=== PATIENT | male | born 1950 | race Caucasian/White ===

== ENCOUNTER 2020-03-07 18:04 | Observation (INO) | payer MEDICARE, OTHER ==
--- NOTE | 2020-03-07 18:18 | PCM.SN.2 ---
- Free Text/Narrative Note: EKG done at 1811 hrs. sinus rhythm heart rate 96 PA 147 axis -71. QT 444 left anterior fascicular block. No prior For comparison impression no obvious injury
[2020-03-07] MEDS ORDERED: Ondansetron 4 MG/2 ML SDV IVPUSH ONE (18:25)
[2020-03-07] MEDS ORDERED: Sodium Chloride 0.9% 1,000 ML IV ONE (18:25)
[2020-03-07] MEDS ORDERED: Dexamethasone 10 MG/ML SDV IVPUSH ONE (18:25)
[2020-03-07 18:47] LABS: BLOOD UREA NITROGEN,BUN 13 mg/dL (7.0-18.0); CARBON DIOXIDE,CO2 26.7 mmol/L (21.0-32.0); CHLORIDE,CL 98 mmol/L (98-107); GLUCOSE RANDOM 128 mg/dL (74-106); POTASSIUM,K 3.7 mmol/L (3.5-5.1); SODIUM,NA 138 mmol/L (136-148)
--- NOTE | 2020-03-07 18:51 | CR ---
INDICATION: SOB w/ covid TECHNIQUE: Chest 1 view. COMPARISON: None. FINDINGS: Cardiovascular and mediastinum: Heart size and vasculature are normal in caliber and appearance. Mediastinum is within normal limits. Lungs and pleural space: Lungs are clear. No sign of infiltrate or mass. No sign of pleural effusion. No pneumothorax. Bones and soft tissues: No significant findings. IMPRESSION: Unremarkable chest. Dictated by: Edward Johnson MD @ 03/07/2020 18:50:01 (Electronically Signed)
[2020-03-07] MEDS ORDERED: Iopamidol 755 MG/ML 500 ML Multipack Bottle IVPUSH STA (19:36)
--- NOTE | 2020-03-07 20:04 | CT ---
INDICATION: Chest pain. COVID-19 positive. TECHNIQUE: CT chest PE was acquired with 100 cc Isovue 370 intravenous contrast. COMPARISON: None. FINDINGS: Heart and vasculature: Contrast opacification of the pulmonary arterial tree is adequate. No sign of pulmonary embolism. Thoracic aorta is normal in caliber with mild atherosclerotic calcification. No pericardial effusion. Lungs and pleural: Trace right pleural effusion. Extensive bilateral ground-glass opacities, predominantly peripheral. Lymph nodes/mediastinum: Enlargement right lobe of the thyroid with areas of punctate calcification and 2.7 centimeter hypodense nodule. Pretracheal adenopathy measures up to 17 millimeters in short axis. Right hilar adenopathy measures up to 18 millimeters. Chest wall: No masses. Upper abdomen: Minimal hiatal hernia. Segment 4 hepatic cyst measuring 7 millimeters. Likely right renal cyst measures 17 millimeters, partially included on the examination. Exophytic subcentimeter hypodense lesion upper pole left kidney, too small for characterization. Bones: Ankylosis thoracic spine. IMPRESSION: 1. No evidence of acute pulmonary embolism. 2. Extensive bilateral ground-glass opacities consistent with a viral pneumonia, presumed COVID-19 pneumonia. 3. Mediastinal and right hilar adenopathy, likely reactive to the pulmonary process. 4. Right lobe thyroid nodule. Follow-up outpatient thyroid ultrasound suggested for further characterization. Please note that all CT scans at this facility use dose modulation, iterative reconstruction, and/or weight-based dosing when appropriate to reduce radiation dose to as low as reasonably achievable. Dictated by Micah Kelly MD @ Mar 07 2020 7:55PM Signed by Dr. Micah Kelly @ Mar 07 2020 8:02PM
--- NOTE | 2020-03-07 21:30 | EDM.PDOC ---
ED HPI GENERAL MEDICAL PROBLEM - General Chief Complaint: Chest Pain Stated Complaint: SHORT OF BREATH Time Seen by Provider: 03/07/20 18:13 Source of Information: Reports: Patient History Limitations: Reports: No Limitations - History of Present Illness INITIAL COMMENTS - FREE TEXT/NARRATIVE: HISTORY AND PHYSICAL: History of present illness: Patient is a 69-year-old male who presents emergency room today with concern of shortness of breath and COVID-19 infection. Patient states he was diagnosed with COVID-19 on February 24 and since then he has been quarantining at home. Patient states that over the past 1 to 2 days he has progressive worsening shortness of breath. Patient states that he has not been able to eat because every time he goes to swallow, he has a sudden increase in shortness of breath and has spit out his food every time he tried to eat. Patient states that he has not been seen since he has been diagnosed with Covid and he was tested at the respiratory clinic at [facility]. Patient he has a history of hypertension but denies any other health history. Patient is he is also felt nauseous, coughing, but has not vomited and has had increased weakness and generalized fatigue. Patient denies fever, chills, chest pain. Denies headache, neck stiff ness, change in vision, syncope, or near syncope. Denies vomiting, abdominal pain, diarrhea, constipation, or dysuria. Has not noted any blood in urine or stool. Review of systems: As per history of present illness and below otherwise all systems reviewed and negative. Past medical history: As per history of present illness and as reviewed below otherwise noncontributory. Surgical history: As per history of present illness and as reviewed below otherwise noncontributory. Social history: See social history for further information Family history: As per history of present illness and as reviewed below otherwise noncontributory. Physical exam: General: Patient is alert, oriented, and in no acute distress. Patient sitting comfortably on exam table; tired appearing. Patient 86-89% on RA. Otherwise vitals stable and reviewed by me. HEENT: Atraumatic, normocephalic, pupils equal and reactive bilaterally, negative for conjunctival pallor or scleral icterus, mucous membranes moist, TMs normal bilaterally, throat clear, neck supple, nontender, trachea midline. No drooling or trismus noted. No meningeal signs. No hot potato voice noted. Lungs: Patient speaking clearly without breathlessness, no wheezing or stridor, no accessory muscle use or respiratory distress. Auscultation deferred due to current COV-ID 19 outbreak. Heart: Auscultation deferred due to current COV-ID 19 outbreak. Abdomen: Soft, nondistended, nontender. Negative for masses or hepatosplenomegaly. Negative for costovertebral tenderness. Pelvis: Stable nontender. Genitourinary: Deferred. Rectal: Deferred. Skin: Intact, warm, dry. No lesions or rashes noted. Extremities: Atraumatic, negative for cords or calf pain. Neurovascular unremarkable. Neuro: Awake, alert, oriented. Cranial nerves II through XII unremarkable. Cerebellum unremarkable. Motor and sensory unremarkable throughout. Exam nonfocal. Notes: Patient placed on 2L NC and 94% upon arrival to the ED. Upon reevaluation of patient, he remains comfortable and vitally stable. Dr. Regan consulted on patient and will admit to observation telemetry. Voices understanding and is agreeable to plan of care. Denies any further questions or concerns at this time. Diagnostics: EKG, CBC, CMP, UA, chest x-ray, troponin, D-dimer, and CT Therapeutics: Saline, Decadron, Zofran Impression: Hypoxia COVID-19 infection Plan: Admit to observation to Dr. Regan on telemetry Definitive disposition and diagnosis as appropriate pending reevaluation and review of above. back Pain Score (Numeric/FACES): 7 - Related Data Allergies Allergy/AdvReac Type Severity Reaction Status Date / Time No Known Allergies Allergy Verified 03/07/20 22:34 Home Meds: Home Meds Losartan/Hydrochlorothiazide [Losartan-HCTZ 100-25 MG] 1 tab PO BID 03/07/20 [History] Past Medical History Cardiovascular History: Reports: Hypertension - Past Surgical History Cardiovascular Surgical History: Reports: None Social & Family History - Family History Family Medical History: No Pertinent Family History - Tobacco Use Tobacco Use Status *Q: Former Tobacco User Used Tobacco, but Quit: Yes Month/Year Tobacco Last Used: "40years ago" - Caffeine Use Caffeine Use: Reports: None - Recreational Drug Use Recreational Drug Use: No ED ROS GENERAL - Review of Systems Review Of Systems: Comprehensive ROS is negative, except as noted in HPI. ED EXAM, GENERAL - Physical Exam Exam: See Below (see dictation) Course - Vital Signs Last Recorded V/S: Last Vital Signs Temp 97.0 F 03/08/20 13:00 Pulse 73 03/08/20 13:00 Resp 18 03/08/20 13:00 BP 125/73 03/08/20 13:00 Pulse Ox 95 03/08/20 13:00 - Orders/Labs/Meds Orders: Medication Orders Albuterol/Ipratropium (Combivent Respimat) 0 gm INH Q6H PRN PRN Reason: Dyspnea Dexamethasone (Dexamethasone) 6 mg PO Q24H MONICO Enoxaparin Sodium (Lovenox) 40 mg SUBCUT Q24H [facility] Last Admin: 03/08/20 01:41 Dose: 40 mg Documented by: CELIA Guaifenesin/Dextromethorphan (Robitussin Dm) 10 ml PO Q4H PRN PRN Reason: Cough HCTZ/Losartan Potassium (Hyzaar 50-12.5 Mg) 2 tab PO BID [facility] Last Admin: 03/08/20 08:55 Dose: 2 tab Documented by: KENZIEIGLUC Remdesivir 100 mg/ Sodium (Chloride) 100 mls @ 100 mls/hr IV Q24H [facility] Stop: 03/11/20 21:59 Ondansetron HCl (Zofran) 4 mg IVPUSH Q4H PRN PRN Reason: Nausea/Vomiting Labs: Laboratory Tests 03/07/20 03/07/20 03/07/20 Range/Units 18:15 18:15 18:15 WBC 7.30 (4.0-11.0) K/uL RBC 4.83 (4.50-5.90) M/uL Hgb 14.3 (13.0-17.0) g/dL Hct 42.4 (38.0-50.0) % MCV 87.8 (80.0-98.0) fL MCH 29.6 (27.0-32.0) pg MCHC 33.7 (31.0-37.0) g/dL RDW Std Deviation 42.9 (28.0-62.0) fl RDW Coeff of Darinel 13 (11.0-15.0) % Plt Count 172 (150-400) K/uL MPV 10.20 (7.40-12.00) fL Neut % (Auto) 66.5 (48.0-80.0) % Lymph % (Auto) 26.6 (16.0-40.0) % [place] % (Auto) 6.7 (0.0-15.0) % Eos % (Auto) 0.1 (0.0-7.0) % Baso % (Auto) 0.1 (0.0-1.5) % Neut # (Auto) 4.9 (1.4-5.7) K/uL Lymph # (Auto) 1.9 (0.6-2.4) K/uL [place] # (Auto) 0.5 (0.0-0.8) K/uL Eos # (Auto) 0.0 (0.0-0.7) K/uL Baso # (Auto) 0.0 (0.0-0.1) K/uL Nucleated RBC % 0.0 /100WBC Nucleated RBCs # 0 K/uL D-Dimer, Quantitative 0.62 H (0.0-0.50) mg/L FEU Sodium 138 (136-148) mmol/L Potassium 3.7 (3.5-5.1) mmol/L Chloride 98 (98-107) mmol/L Carbon Dioxide 26.7 (21.0-32.0) mmol/L BUN 13 (7.0-18.0) mg/dL Creatinine 0.9 (0.8-1.3) mg/dL Est Cr Clr Drug Dosing TNP Estimated GFR (MDRD) > 60.0 ml/min Glucose 128 H (74-106) mg/dL Calcium 9.1 (8.5-10.1) mg/dL Total Bilirubin 0.6 (0.2-1.0) mg/dL AST 30 (15-37) IU/L ALT 37 (14-63) IU/L Alkaline Phosphatase 69 (46-116) U/L Troponin I < 0.050 (0.000-0.056) ng/mL Total Protein 7.8 (6.4-8.2) g/dL Albumin 3.5 (3.4-5.0) g/dL Globulin 4.3 H (2.6-4.0) g/dL Albumin/Globulin Ratio 0.8 L (0.9-1.6) Meds: Medications Generic Name Dose Route Start Last Admin Trade Name Freq PRN Reason Stop Dose Admin Albuterol/Ipratropium 0 gm 03/07/20 23:01 Combivent Respimat INH Q6H PRN Dyspnea Dexamethasone 6 mg 03/08/20 18:00 Dexamethasone PO Q24H MONICO Enoxaparin Sodium 40 mg 03/08/20 01:15 03/08/20 01:41 Lovenox SUBCUT 40 mg Q24H MONICO Administration Guaifenesin/Dextromethorphan 10 ml 03/08/20 09:04 Robitussin Dm PO Q4H PRN Cough HCTZ/Losartan Potassium 2 tab 03/08/20 09:00 03/08/20 08:55 Hyzaar 50-12.5 Mg PO 2 tab BID MONICO Administration Remdesivir 100 mg/ Sodium 100 mls @ 100 mls/hr 03/08/20 21:00 Chloride IV 03/11/20 21:59 Q24H MONICO Ondansetron HCl 4 mg 03/07/20 23:02 Zofran IVPUSH Q4H PRN Nausea/Vomiting Discontinued Medications Generic Name Dose Route Start Last Admin Trade Name Freq PRN Reason Stop Dose Admin Dexamethasone 6 mg 03/07/20 18:25 03/07/20 18:37 Decadron IVPUSH 03/07/20 18:26 6 mg ONETIME ONE Administration Sodium Chloride 1,000 mls @ 999 mls/hr 03/07/20 18:25 03/07/20 18:37 Normal Saline IV 03/07/20 19:25 999 mls/hr BOLUS ONE Administration Remdesivir 200 mg/ Sodium 250 mls @ 250 mls/hr 03/08/20 01:02 03/08/20 01:37 Chloride IV 03/08/20 01:03 250 mls/hr ONETIME ONE Administration Iopamidol 100 ml 03/07/20 19:36 03/07/20 19:44 Isovue Multipack-370 (76%) IVPUSH 03/07/20 19:37 100 ml ONETIME STA Administration Ondansetron HCl 4 mg 03/07/20 18:25 03/07/20 18:37 Zofran IVPUSH 03/07/20 18:26 4 mg ONETIME ONE Administration Departure - Departure Time of Disposition: 21:30 Disposition: Refer to Observation Clinical Impression: COVID-19 virus infection, Hypoxia - Discharge Information Sepsis Event Note (ED) - Evaluation Sepsis Screening Result: No Definite Risk
[2020-03-07] MEDS ORDERED: Albuterol/Ipratropium 4 GM Inhalation Spray INH PRN (23:01)
[2020-03-07] MEDS ORDERED: Ondansetron 4 MG/2 ML SDV IVPUSH PRN (23:02)
[2020-03-08] MEDS ORDERED: REMDESIVIR 200 MG in Sodium Chloride 0.9% 250 ML IV ONE (01:02)
--- NOTE | 2020-03-08 01:11 | PCM.HP.2 ---
H&P History of Present Illness - General Date of Service: 03/08/20 Admit Problem/Dx: Admission Diagnosis/Problem Admission Diagnosis/Problem Hypoxia - History of Present Illness Initial Comments - Free Text/Narative: 69 yo male with pmh of HTN who tested positive for COVID on Mar 03 after having a week of symptoms of shortness of breath, fever, and headache. Patient presents to the ED today with worsening shortness of breath requiring 2 L NC to keep sats above 90$. CT scan of chest shows bilateral ground glass opacities. back Pain Score (Numeric/FACES): 7 - Related Data Allergies/Adverse Reactions: Allergies Allergy/AdvReac Type Severity Reaction Status Date / Time No Known Allergies Allergy Verified 03/07/20 22:34 Home Medications: Home Meds Losartan/Hydrochlorothiazide [Losartan-HCTZ 100-25 MG] 1 tab PO BID 03/07/20 [History] Past Medical History Cardiovascular History: Reports: Hypertension - Past Surgical History Cardiovascular Surgical History: Reports: None Social & Family History - Family History Family Medical History: No Pertinent Family History - Tobacco Use Tobacco Use Status *Q: Former Tobacco User Used Tobacco, but Quit: Yes Month/Year Tobacco Last Used: 40 years ago - Caffeine Use Caffeine Use: Reports: Coffee, Soda - Recreational Drug Use Recreational Drug Use: No H&P Review of Systems - Review of Systems: Review Of Systems: Comprehensive ROS is negative, except as noted in HPI. Exam - Exam Exam: See Below - Vital Signs Vital Signs: Last Vital Signs Temp 36.8 C 03/08/20 00:00 Pulse 63 03/08/20 00:00 Resp 20 03/08/20 00:00 BP 112/63 03/08/20 00:00 Pulse Ox 91 L 03/08/20 00:00 Weight: 113.398 kg - Exam General: Alert, Oriented HEENT: Mucosa Moist & [place] Neck: Supple Lungs: Clear to Auscultation, Normal Respiratory Effort Cardiovascular: Regular Rate, Regular Rhythm GI/Abdominal Exam: Normal Bowel Sounds, Soft, Non-Tender Extremities: Non-Tender, No Pedal Edema Skin: Warm, Dry, Intact Neurological: No: Focal Deficit - Patient Data Lab Results Last 24 hrs: Laboratory Results - last 24 hr 03/07/20 03/07/20 03/07/20 Range/Units 18:15 18:15 18:15 WBC 7.30 (4.0-11.0) K/uL RBC 4.83 (4.50-5.90) M/uL Hgb 14.3 (13.0-17.0) g/dL Hct 42.4 (38.0-50.0) % MCV 87.8 (80.0-98.0) fL MCH 29.6 (27.0-32.0) pg MCHC 33.7 (31.0-37.0) g/dL RDW Std Deviation 42.9 (28.0-62.0) fl RDW Coeff of Darinel 13 (11.0-15.0) % Plt Count 172 (150-400) K/uL MPV 10.20 (7.40-12.00) fL Neut % (Auto) 66.5 (48.0-80.0) % Lymph % (Auto) 26.6 (16.0-40.0) % [place] % (Auto) 6.7 (0.0-15.0) % Eos % (Auto) 0.1 (0.0-7.0) % Baso % (Auto) 0.1 (0.0-1.5) % Neut # (Auto) 4.9 (1.4-5.7) K/uL Lymph # (Auto) 1.9 (0.6-2.4) K/uL [place] # (Auto) 0.5 (0.0-0.8) K/uL Eos # (Auto) 0.0 (0.0-0.7) K/uL Baso # (Auto) 0.0 (0.0-0.1) K/uL Nucleated RBC % 0.0 /100WBC Nucleated RBCs # 0 K/uL D-Dimer, Quantitative 0.62 H (0.0-0.50) mg/L FEU Sodium 138 (136-148) mmol/L Potassium 3.7 (3.5-5.1) mmol/L Chloride 98 (98-107) mmol/L Carbon Dioxide 26.7 (21.0-32.0) mmol/L BUN 13 (7.0-18.0) mg/dL Creatinine 0.9 (0.8-1.3) mg/dL Est Cr Clr Drug Dosing TNP Estimated GFR (MDRD) > 60.0 ml/min Glucose 128 H (74-106) mg/dL Calcium 9.1 (8.5-10.1) mg/dL Total Bilirubin 0.6 (0.2-1.0) mg/dL AST 30 (15-37) IU/L ALT 37 (14-63) IU/L Alkaline Phosphatase 69 (46-116) U/L Troponin I < 0.050 (0.000-0.056) ng/mL Total Protein 7.8 (6.4-8.2) g/dL Albumin 3.5 (3.4-5.0) g/dL Globulin 4.3 H (2.6-4.0) g/dL Albumin/Globulin Ratio 0.8 L (0.9-1.6) Result Diagrams: 03/07/20 18:15 03/07/20 18:15 Sepsis Event Note - Evaluation Sepsis Screening Result: No Definite Risk - Focused Exam Vital Signs: Vital Signs Temp Pulse Resp BP BP Pulse Ox 03/08/20 00:00 36.8 C 63 20 112/63 91 L 03/07/20 22:15 36.9 C 80 20 125/64 95 03/07/20 21:54 77 16 114/51 L 95 03/07/20 21:17 94 L 03/07/20 21:08 89 L 03/07/20 20:40 80 16 109/46 L 94 L 03/07/20 19:50 80 16 130/52 L 94 L 03/07/20 19:16 83 18 119/54 L 95 03/07/20 18:05 36.6 C 104 H 20 147/73 H 92 L Problem List Initiated/Reviewed/Updated: Yes Orders Last 24hrs: Active Orders 24 hr Category Date Time Status Admission Status [Patient Status] [ADT] Stat ADT 03/07/20 21:13 Active Antiembolic Devices [RC] PER UNIT ROUTINE Care 03/08/20 01:06 Active Oxygen Therapy [RC] PRN Care 03/08/20 01:05 Active RT Post Treatment Assessment [RC] Click to Edit Care 03/07/20 23:02 Active RT Pre-Treatment Assessment [RC] Click to Edit Care 03/07/20 23:02 Active Telemetry Monitoring [Cardiac Monitoring] [RC] Q8H Care 03/07/20 21:40 Active VTE/DVT Education [RC] PER UNIT ROUTINE Care 03/08/20 01:05 Active Vital Signs [RC] Q4H Care 03/07/20 23:03 Active Vital Signs [RC] Q4H Care 03/08/20 01:05 Active Regular Diet [DIET] Diet 03/07/20 Dinner Active CBC WITH AUTO DIFF [HEME] AM Lab 03/08/20 05:11 Ordered CBC WITH AUTO DIFF [HEME] AM Lab 03/09/20 05:11 Ordered CBC WITH AUTO DIFF [HEME] AM Lab 03/10/20 05:11 Ordered CBC WITH AUTO DIFF [HEME] AM Lab 03/11/20 05:11 Ordered CBC WITH AUTO DIFF [HEME] AM Lab 03/12/20 05:11 Ordered COMPREHENSIVE METABOLIC PN,CMP [CHEM] AM Lab 03/08/20 05:11 Ordered COMPREHENSIVE METABOLIC PN,CMP [CHEM] AM Lab 03/09/20 05:11 Ordered COMPREHENSIVE METABOLIC PN,CMP [CHEM] AM Lab 03/10/20 05:11 Ordered COMPREHENSIVE METABOLIC PN,CMP [CHEM] AM Lab 03/11/20 05:11 Ordered COMPREHENSIVE METABOLIC PN,CMP [CHEM] AM Lab 03/12/20 05:11 Ordered Albuterol/Ipratropium [Combivent Respimat] Med 03/07/20 23:01 Active 0 gm INH Q6H PRN Enoxaparin [Lovenox] Med 03/08/20 01:15 Ordered 40 mg SUBCUT Q24H Hydrochlorothiazide/Losartan [Hyzaar 50-12.5 MG] Med 03/08/20 09:00 Active 2 tab PO BID Ondansetron [Zofran] Med 03/07/20 23:02 Active 4 mg IVPUSH Q4H PRN Remdesivir 100 mg Med 03/09/20 01:15 Ordered Sodium Chloride 0.9% [Normal Saline] 100 ml IV Q24H Remdesivir 200 mg Med 03/08/20 01:02 Ordered Sodium Chloride 0.9% [Normal Saline] 250 ml IV ONETIME dexAMETHasone Med 03/08/20 18:00 Ordered 6 mg PO Q24H Sequential Compression Device [OM.PC] Per Unit Routine Oth 03/08/20 01:05 Ordered Resuscitation Status Routine Resus Stat 03/08/20 01:05 Ordered Medication Orders Albuterol/Ipratropium (Combivent Respimat) 0 gm INH Q6H PRN PRN Reason: Dyspnea Dexamethasone (Dexamethasone) 6 mg PO Q24H MONICO Enoxaparin Sodium (Lovenox) 40 mg SUBCUT Q24H [facility] HCTZ/Losartan Potassium (Hyzaar 50-12.5 Mg) 2 tab PO BID [facility] Remdesivir 100 mg/ Sodium (Chloride) 100 mls @ 100 mls/hr IV Q24H [facility] Stop: 03/12/20 02:14 Remdesivir 200 mg/ Sodium (Chloride) 250 mls @ 250 mls/hr IV ONETIME ONE Stop: 03/08/20 01:03 Ondansetron HCl (Zofran) 4 mg IVPUSH Q4H PRN PRN Reason: Nausea/Vomiting Assessment/Plan Comment:: 69 yo male admitted for COVID-19. COVID-19: patient explained FDA EUA on Remdisivir and consented to its use. Will treat with dexamethason and Remdesivir. Thyroid nodule: will need outpatient follow up.
[2020-03-08] MEDS: Enoxaparin 40 MG/0.4 ML Syringe SUBCUT SCH (01:41)
[2020-03-08 06:57] LABS: BLOOD UREA NITROGEN,BUN 13 mg/dL (7.0-18.0); CHLORIDE,CL 106 mmol/L (98-107); GLUCOSE RANDOM 149 mg/dL (74-106); POTASSIUM,K 4.4 mmol/L (3.5-5.1); SODIUM,NA 142 mmol/L (136-148)
[2020-03-08] MEDS: Hydrochlorothiazide/Losartan 12.5-50 mg Tab PO SCH ×2 (08:55→20:10)
[2020-03-08] MEDS ORDERED: guaiFENesin/Dextromethorphan 100-10 MG/5 ML Soln 10 ML Cup PO PRN (09:04)
[2020-03-08] MEDS: Dexamethasone 4 MG Tab PO SCH (17:36)
[2020-03-08] MEDS: REMDESIVIR 100 MG in Sodium Chloride 0.9% 100 ML IV SCH (20:10)
[2020-03-09] MEDS: Enoxaparin 40 MG/0.4 ML Syringe SUBCUT SCH (00:39)
[2020-03-09 06:41] LABS: BLOOD UREA NITROGEN,BUN 20 mg/dL (7.0-18.0); CARBON DIOXIDE,CO2 30.1 mmol/L (21.0-32.0); CHLORIDE,CL 104 mmol/L (98-107); GLUCOSE RANDOM 141 mg/dL (74-106); POTASSIUM,K 4.5 mmol/L (3.5-5.1); SODIUM,NA 143 mmol/L (136-148)
[2020-03-09] MEDS: Hydrochlorothiazide/Losartan 12.5-50 mg Tab PO SCH ×2 (08:09→21:28)
--- NOTE | 2020-03-09 08:31 | PCM.PN ---
- General Info Date of Service: 03/09/20 - Review of Systems Systems Review Comment:: feeling better, breathing has improved, no fevers - Patient Data Vitals - Most Recent: Last Vital Signs Temp 36.2 C 03/09/20 08:00 Pulse 72 03/09/20 08:00 Resp 17 03/09/20 08:00 BP 147/54 H 03/09/20 08:00 Pulse Ox 95 03/09/20 08:25 Weight - Most Recent: 113.398 kg I&O - Last 24 Hours: Intake & Output 03/08/20 03/09/20 03/09/20 22:59 06:59 14:59 Intake Total 2640 400 Balance 2640 400 Lab Results Last 24 Hours: Laboratory Results - last 24 hr 03/09/20 03/09/20 Range/Units 05:50 05:50 WBC 5.84 (4.0-11.0) K/uL RBC 4.74 (4.50-5.90) M/uL Hgb 13.8 (13.0-17.0) g/dL Hct 41.9 (38.0-50.0) % MCV 88.4 (80.0-98.0) fL MCH 29.1 (27.0-32.0) pg MCHC 32.9 (31.0-37.0) g/dL RDW Std Deviation 43.0 (28.0-62.0) fl RDW Coeff of [place] 13 (11.0-15.0) % Plt Count 226 (150-400) K/uL MPV 10.50 (7.40-12.00) fL Add Manual Diff YES Neutrophils % (Manual) 72 (48.0-80.0) % Lymphocytes % (Manual) 25 (16.0-40.0) % Monocytes % (Manual) 3 (0.0-15.0) % Nucleated RBC % 0.0 /100WBC Absolute Seg Neuts 4.2 (1.4-5.7) Lymphocytes # (Manual) 1.5 (0.6-2.4) Monocytes # (Manual) 0.2 (0.0-0.8) Nucleated RBCs # 0 K/uL Sodium 143 (136-148) mmol/L Potassium 4.5 (3.5-5.1) mmol/L Chloride 104 (98-107) mmol/L Carbon Dioxide 30.1 (21.0-32.0) mmol/L BUN 20 H (7.0-18.0) mg/dL Creatinine 0.7 L (0.8-1.3) mg/dL Est Cr Clr Drug Dosing 105.73 mL/min Estimated GFR (MDRD) > 60.0 ml/min Glucose 141 H (74-106) mg/dL Calcium 9.4 (8.5-10.1) mg/dL Total Bilirubin 0.3 (0.2-1.0) mg/dL AST 32 (15-37) IU/L ALT 49 (14-63) IU/L Alkaline Phosphatase 61 (46-116) U/L Total Protein 7.3 (6.4-8.2) g/dL Albumin 3.2 L (3.4-5.0) g/dL Globulin 4.1 H (2.6-4.0) g/dL Albumin/Globulin Ratio 0.8 L (0.9-1.6) Med Orders - Current: Current Medications Albuterol/Ipratropium (Combivent Respimat) 0 gm INH Q6H PRN PRN Reason: Dyspnea Dexamethasone (Dexamethasone) 6 mg PO Q24H [facility] Last Admin: 03/08/20 17:36 Dose: 6 mg Documented by: Enoxaparin Sodium (Lovenox) 40 mg SUBCUT Q24H [facility] Last Admin: 03/09/20 00:39 Dose: 40 mg Documented by: Guaifenesin/Dextromethorphan (Robitussin Dm) 10 ml PO Q4H PRN PRN Reason: Cough HCTZ/Losartan Potassium (Hyzaar 50-12.5 Mg) 2 tab PO BID [facility] Last Admin: 03/09/20 08:09 Dose: 2 tab Documented by: Remdesivir 100 mg/ Sodium (Chloride) 100 mls @ 100 mls/hr IV Q24H [facility] Stop: 03/11/20 21:59 Last Admin: 03/08/20 20:10 Dose: 100 mls/hr Documented by: Ondansetron HCl (Zofran) 4 mg IVPUSH Q4H PRN PRN Reason: Nausea/Vomiting Discontinued Medications Dexamethasone (Decadron) 6 mg IVPUSH ONETIME ONE Stop: 03/07/20 18:26 Last Admin: 03/07/20 18:37 Dose: 6 mg Documented by: Sodium Chloride (Normal Saline) 1,000 mls @ 999 mls/hr IV BOLUS ONE Stop: 03/07/20 19:25 Last Admin: 03/07/20 18:37 Dose: 999 mls/hr Documented by: Remdesivir 200 mg/ Sodium (Chloride) 250 mls @ 250 mls/hr IV ONETIME ONE Stop: 03/08/20 01:03 Last Admin: 03/08/20 01:37 Dose: 250 mls/hr Documented by: Iopamidol (Isovue Multipack-370 (76%)) 100 ml IVPUSH ONETIME STA Stop: 03/07/20 19:37 Last Admin: 03/07/20 19:44 Dose: 100 ml Documented by: Ondansetron HCl (Zofran) 4 mg IVPUSH ONETIME ONE Stop: 03/07/20 18:26 Last Admin: 03/07/20 18:37 Dose: 4 mg Documented by: - Exam General: Alert, Oriented Neck: Supple Lungs: Clear to Auscultation, Normal Respiratory Effort Cardiovascular: Regular Rate, Regular Rhythm GI/Abdominal Exam: Soft, Non-Tender, No Distention Neurological: No New Focal Deficit Sepsis Event Note - Evaluation Sepsis Screening Result: No Definite Risk - Focused Exam Vital Signs: Vital Signs Temp Pulse Resp BP Pulse Ox Pulse Ox 03/09/20 08:25 95 03/09/20 08:00 36.2 C 72 17 147/54 H 95 03/09/20 03:23 36.1 C 65 18 137/59 L 95 03/09/20 00:00 36.2 C 71 16 126/71 92 L 03/08/20 20:32 36.4 C 81 16 122/60 94 L - Problem List Review Problem List Initiated/Reviewed/Updated: Yes - My Orders Last 24 Hours: My Active Orders 03/08/20 09:00 Hydrochlorothiazide/Losartan [Hyzaar 50-12.5 MG] 2 tab PO BID 03/08/20 18:00 dexAMETHasone 6 mg PO Q24H 03/08/20 21:00 Remdesivir 100 mg Sodium Chloride 0.9% [Normal Saline] 100 ml IV Q24H 03/10/20 05:11 CBC WITH AUTO DIFF [HEME] AM COMPREHENSIVE METABOLIC PN,CMP [CHEM] AM 03/11/20 05:11 CBC WITH AUTO DIFF [HEME] AM COMPREHENSIVE METABOLIC PN,CMP [CHEM] AM 03/12/20 05:11 CBC WITH AUTO DIFF [HEME] AM COMPREHENSIVE METABOLIC PN,CMP [CHEM] AM - Plan Plan:: 69 yo male admitted for COVID-19. COVID-19: continue dexamethason and Remdesivir. on 2 L NC Thyroid nodule: will need outpatient follow up.
[2020-03-09] MEDS: Dexamethasone 4 MG Tab PO SCH (17:12)
[2020-03-09] MEDS: REMDESIVIR 100 MG in Sodium Chloride 0.9% 100 ML IV SCH (20:47)
[2020-03-10] MEDS: Enoxaparin 40 MG/0.4 ML Syringe SUBCUT SCH (00:24)
[2020-03-10 06:46] LABS: BLOOD UREA NITROGEN,BUN 18 mg/dL (7.0-18.0); CHLORIDE,CL 103 mmol/L (98-107); GLUCOSE RANDOM 140 mg/dL (74-106); POTASSIUM,K 4.3 mmol/L (3.5-5.1); SODIUM,NA 140 mmol/L (136-148)
[2020-03-10] MEDS: Hydrochlorothiazide/Losartan 12.5-50 mg Tab PO SCH (08:35)
--- NOTE | 2020-03-10 10:17 | PCM.DCSUM1 ---
Discharge Summary - Hospital Course Brief History: 69 yo male with pmh of HTN who tested positive for COVID on Mar 03 after having a week of symptoms of shortness of breath, fever, and headache. Patient presents to the ED today with worsening shortness of breath requiring 2 L NC to keep sats above 90%. CT scan of chest shows bilateral ground glass opacities. Diagnosis: Stroke: No - Discharge Data Discharge Date: 03/10/20 Discharge Disposition: Home, Self-Care 01 Condition: Stable - Referral to Home Health Primary Care Physician: PCP None - Discharge Diagnosis/Problem(s) (1) Hypertension SNOMED Code(s): 70080780 ICD Code: I10 - ESSENTIAL (PRIMARY) HYPERTENSION Status: Acute Current Visit: Yes (2) COVID-19 virus infection SNOMED Code(s): 683627940 ICD Code: U07.1 - COVID-19 Status: Acute Current Visit: Yes (3) Hypoxia SNOMED Code(s): 992437044 ICD Code: R09.02 - HYPOXEMIA Status: Acute Current Visit: Yes - Patient Summary/Data Hospital Course: Admission diagnoses COVID-19 Hypoxia discharge diagnoses COVID-19 Hypoxia Other PMH: Hypertension Claudio was admitted secondary to worsening shortness of breath and hypoxia secondary to COVID-19. He was noted to be needing 2 L of oxygen to keep sats greater than 92%. He was started on remdesivir as well as dexamethasone daily. He has slowly been weaned off of oxygen. Today he is satting 95% on room air with rest as well as with activity. He reports that shortness of breath is significantly improved and his cough has improved as well. He is eager to go home today. He finished 2 days of remdesivir as well as dexamethasone treatments. He will go home today he is to monitor himself for worsening shortness of breath and return to the ER if concerns should arise. CT angio that was obtained incidentally found thyroid nodule. He was instructed to follow-up as outpatient with PCP. - Patient Instructions Diet: Regular Diet as Tolerated Activity: No Strenuous Activities, Rest and Relax Today Showering/Bathing: July Shower Notify Provider of: Fever, Increased Pain, Swelling and Redness, Drainage, Nausea and/or Vomiting Other/Special Instructions: Quarantine for another 6 days, total 20 days since you were hospitalized - Discharge Plan *PRESCRIPTION DRUG MONITORING PROGRAM REVIEWED*: Not Applicable *COPY OF PRESCRIPTION DRUG MONITORING REPORT IN PATIENT UNIQUE: Not Applicable Home Medications: Home Meds Losartan [Cozaar] 100 mg PO BID 03/10/20 [History] hydroCHLOROthiazide [Hydrochlorothiazide] 12.5 mg PO BID 03/10/20 [History] Oxygen Therapy Mode: Room Air Patient Handouts: COVID-19 Frequently Asked Questions, COVID-19, COVID-19: How to Protect Yourself and Others - CDC, Prevent the Spread of COVID-19 if You Are Sick - [facility] Referrals: Abbe Marquez MD [Ordering Only Provider] - 03/24/20 10:45 am () - Discharge Summary/Plan Comment DC Time >30 min.: No - Patient Data Vitals - Most Recent: Last Vital Signs Temp 97.8 F 03/10/20 08:00 Pulse 64 03/10/20 08:00 Resp 18 03/10/20 08:00 BP 140/71 03/10/20 08:00 Pulse Ox 94 L 03/10/20 10:00 Weight - Most Recent: 113.398 kg I&O - Last 24 hours: Intake & Output 03/09/20 03/10/20 03/10/20 22:59 06:59 14:59 Intake Total 2000 1000 Output Total 1200 Balance 800 1000 Lab Results - Last 24 hrs: Laboratory Results - last 24 hr 03/10/20 03/10/20 Range/Units 05:54 05:54 WBC 6.76 (4.0-11.0) K/uL RBC 4.68 (4.50-5.90) M/uL Hgb 13.8 (13.0-17.0) g/dL Hct 40.7 (38.0-50.0) % MCV 87.0 (80.0-98.0) fL MCH 29.5 (27.0-32.0) pg MCHC 33.9 (31.0-37.0) g/dL RDW Std Deviation 41.8 (28.0-62.0) fl RDW Coeff of Darinel 13 (11.0-15.0) % Plt Count 270 (150-400) K/uL MPV 10.20 (7.40-12.00) fL Add Manual Diff YES Neutrophils % (Manual) 69 (48.0-80.0) % Band Neutrophils % 4 % Lymphocytes % (Manual) 23 (16.0-40.0) % Monocytes % (Manual) 4 (0.0-15.0) % Nucleated RBC % 0.0 /100WBC Absolute Seg Neuts 4.7 (1.4-5.7) Band Neutrophils # 0.3 Lymphocytes # (Manual) 1.6 (0.6-2.4) Monocytes # (Manual) 0.3 (0.0-0.8) Nucleated RBCs # 0 K/uL Sodium 140 (136-148) mmol/L Potassium 4.3 (3.5-5.1) mmol/L Chloride 103 (98-107) mmol/L Carbon Dioxide 28.0 (21.0-32.0) mmol/L BUN 18 (7.0-18.0) mg/dL Creatinine 0.8 (0.8-1.3) mg/dL Est Cr Clr Drug Dosing 92.52 mL/min Estimated GFR (MDRD) > 60.0 ml/min Glucose 140 H (74-106) mg/dL Calcium 9.3 (8.5-10.1) mg/dL Total Bilirubin 0.5 (0.2-1.0) mg/dL AST 24 (15-37) IU/L ALT 43 (14-63) IU/L Alkaline Phosphatase 59 (46-116) U/L Total Protein 7.4 (6.4-8.2) g/dL Albumin 3.4 (3.4-5.0) g/dL Globulin 4.0 (2.6-4.0) g/dL Albumin/Globulin Ratio 0.9 (0.9-1.6) Med Orders - Current: Current Medications Albuterol/Ipratropium (Combivent Respimat) 0 gm INH Q6H PRN PRN Reason: Dyspnea Dexamethasone (Dexamethasone) 6 mg PO Q24H [facility] Last Admin: 03/09/20 17:12 Dose: 6 mg Documented by: Enoxaparin Sodium (Lovenox) 40 mg SUBCUT Q24H [facility] Last Admin: 03/10/20 00:24 Dose: 40 mg Documented by: Guaifenesin/Dextromethorphan (Robitussin Dm) 10 ml PO Q4H PRN PRN Reason: Cough Hydrochlorothiazide (Hydrochlorothiazide) 12.5 mg PO BID [facility] Remdesivir 100 mg/ Sodium (Chloride) 100 mls @ 100 mls/hr IV Q24H [facility] Stop: 03/11/20 21:59 Last Admin: 03/09/20 20:47 Dose: 100 mls/hr Documented by: Losartan Potassium (Cozaar) 100 mg PO BID [facility] Ondansetron HCl (Zofran) 4 mg IVPUSH Q4H PRN PRN Reason: Nausea/Vomiting Discontinued Medications Dexamethasone (Decadron) 6 mg IVPUSH ONETIME ONE Stop: 03/07/20 18:26 Last Admin: 03/07/20 18:37 Dose: 6 mg Documented by: HCTZ/Losartan Potassium (Hyzaar 50-12.5 Mg) 2 tab PO BID [facility] Stop: 03/10/20 09:01 Last Admin: 03/10/20 08:35 Dose: 2 tab Documented by: Sodium Chloride (Normal Saline) 1,000 mls @ 999 mls/hr IV BOLUS ONE Stop: 03/07/20 19:25 Last Admin: 03/07/20 18:37 Dose: 999 mls/hr Documented by: Remdesivir 200 mg/ Sodium (Chloride) 250 mls @ 250 mls/hr IV ONETIME ONE Stop: 03/08/20 01:03 Last Admin: 03/08/20 01:37 Dose: 250 mls/hr Documented by: Iopamidol (Isovue Multipack-370 (76%)) 100 ml IVPUSH ONETIME STA Stop: 03/07/20 19:37 Last Admin: 03/07/20 19:44 Dose: 100 ml Documented by: Ondansetron HCl (Zofran) 4 mg IVPUSH ONETIME ONE Stop: 03/07/20 18:26 Last Admin: 03/07/20 18:37 Dose: 4 mg Documented by:
[2020-03-10] MEDS ORDERED: Hydrochlorothiazide 12.5 MG Cap PO SCH (21:00)
[2020-03-10] MEDS ORDERED: Losartan 50 MG Tab PO SCH (21:00)
== END 2020-03-10 12:27 | disposition home or self-care (01) ==
LOC: MW.ED 18:04 → MW.ICU 21:13 → MW.MS 03-09 09:16
PROVIDERS: ADMIT Internal Medicine; ATTEND Internal Medicine
DX: U07.1 COVID-19 (principal); I10 Essential (primary) hypertension; E04.1 Nontoxic single thyroid nodule; R09.02 Hypoxemia; Z79.899 Other long term (current) drug therapy; Z87.891 Personal history of nicotine dependence
CPT/HCPCS: 36415; 71045; 71275; 80053; 84484; 85025; 85379; 93005; 96365; 96366; 96372; 96375; 96376; 99285; A9270; G0378; J1100; J1650; J2405; J7030; J7050; J8540; Q9967; 93010; 96374; 99284